=== PATIENT | male | born 1960 | race Caucasian/White ===

== ENCOUNTER 2021-04-15 07:55 | Day surgery (SDC) | payer BC, SELFPAY ==
--- NOTE | 2021-04-14 11:54 | P.CONAN_ITS ---
Documented by User: Janette Tucker 04/14/21 11:56 HPI - Anesthesia Eval Consult details Narrative: 61yo M for Upper Endoscopy [facility] Past Medical History Medical History GERD (gastroesophageal reflux disease) Surgical History Surgical History (Updated 04/15/21 @ 09:17 by Gayle Hunter) H/O colonoscopy (~2019) History of esophagogastroduodenoscopy (EGD) S/P left knee arthroscopy S/P right knee arthroscopy Social History Social History Smoking Status: Never smoker Second Hand Smoke Exposure: No Use of substances other than those prescribed or required for medical reasons: No Are you DNR?: No Advance Directives: No Advance Directives Information Provided: Yes Recently lost weight without trying: No Nutrition Risks: No Nutritional Risk Poor oral hygiene: No Meds Allergies Allergy/AdvReac Type Severity Reaction Status Date / Time No Known Allergies Allergy Verified 04/15/21 08:08 Home Medications Medication Instructions Recorded Confirmed Last Taken Type omeprazole 1 cap PO DAILY 04/14/21 04/14/21 Unknown History Exam Exam Date and Time: April 14, 2021 1154 Assessment and Plan Assessment Anesthesia Assessment: Chart Reviewed Documented by User: Gayle Hunter 04/15/21 09:18 [facility] Past Medical History Medical History GERD (gastroesophageal reflux disease) Family History Family history of problems with anesthesia: No Surgical History Surgical History (Updated 04/15/21 @ 09:17 by Gayle Hunter) H/O colonoscopy (~2019) History of esophagogastroduodenoscopy (EGD) S/P left knee arthroscopy S/P right knee arthroscopy History of Problems with Anesthesia: No Social History Social History Smoking Status: Never smoker Second Hand Smoke Exposure: No Use of substances other than those prescribed or required for medical reasons: No Are you DNR?: No Advance Directives: No Advance Directives Information Provided: Yes Recently lost weight without trying: No Nutrition Risks: No Nutritional Risk Poor oral hygiene: No Meds Allergies Allergy/AdvReac Type Severity Reaction Status Date / Time No Known Allergies Allergy Verified 04/15/21 08:08 Home Medications Medication Instructions Recorded Confirmed Last Taken Type omeprazole 1 cap PO DAILY 04/14/21 04/14/21 Unknown History Exam Height,Weight and Vital Signs: Vital Signs Temp Pulse Resp BP Pulse Ox 04/15/21 08:01 97.0 F 55 16 134/67 97 Airway Mallampati Class: II TM Dist: >3cm Neck ROM: Full Heart: RRR Lungs: CTAB Assessment and Plan Assessment Anesthesia Assessment: Anesthesia Plan Discussed and Chart Reviewed Final Anesthetic Review NPO: Yes ASA Class: II Final Preanesthetic Review: No Changes in Pt Med Stat, Meds/Allgs Chart Reviewed, Consent Obtained/Reviewed and Anes Risks/Benef Reviewed Patient Risk: Low Procedure Risk: Low Assessment/Block/Sedation in SS: Assess/Block/Sedation-SS Anesthetic Plan Anesthetic Plan: MAC: Disposition: Standard PACU
[2021-04-15 08:01] VITALS: BP 134/67; PULSE 55; RESP 16; TEMP 36.1; O2SAT 97; BMI 33.7
[2021-04-15] MEDS: Lactated Ringers 1,000 ML 100 ML IVCONT (08:20)
[2021-04-15 09:50] VITALS: BP 115/65; PULSE 60; RESP 12; TEMP 36.2; O2SAT 96
--- NOTE | 2021-04-15 09:55 | P.BOP_ITS ---
Brief Operative Note Date of Service: 04/15/21 Pre-op diagnosis: GERD Post-op diagnosis: other (Hiatal hernia, GERD) Procedure: EGD with biopsies Surgeon: Chin Panda Anesthesia: MAC Was an Experimental Electronics Developer used for this Procedure?: No Estimated blood loss (mL): 3.0 Pathology: other (A. EG Junction at 36cm) Condition: stable Disposition: PACU
[2021-04-15 10:05] VITALS: BP 115/70; PULSE 55; RESP 16; TEMP 36.2; O2SAT 98
--- NOTE | 2021-04-15 10:28 | OP_ITS ---
SURGEON: Chin Panda MD INDICATIONS: The patient presents for evaluation of gastroesophageal reflux and abdominal discomfort. Full consent has been obtained from him for this, including risks of bleeding and perforation. PREOPERATIVE DIAGNOSIS: POSTOPERATIVE DIAGNOSIS: PROCEDURE PERFORMED: Esophagogastroduodenoscopy with biopsies. ESTIMATED BLOOD LOSS: COMPLICATIONS: ANESTHESIA: Monitored anesthesia care. ASSISTANTS: SPECIMENS: PREOPERATIVE DIAGNOSES: Abdominal discomfort and gastroesophageal reflux. POSTOPERATIVE DIAGNOSES: Abdominal discomfort and gastroesophageal reflux, hiatal hernia. DESCRIPTION OF PROCEDURE: The patient was placed in the left lateral decubitus position. The Olympus video gastroscope was passed in the posterior oropharynx and upper esophagus under direct vision. The scope was passed slowly into the distal esophagus. The gastroesophageal junction appeared at 36 cm. There was some very slight irregularity consistent with reflux, but no evidence of esophagitis nor any definitive evidence of Villela's mucosa. The scope entered into the stomach. There was a small to moderate-sized hiatal hernia. The scope was advanced to pylorus and duodenum was cannulated to the descending portion. The duodenum including the bulb appeared normal without mass or ulceration. The scope was withdrawn back in the stomach. The gastric antrum and body appeared normal with good peristalsis. The scope was retroflexed visualizing the proximal stomach carefully, which appeared normal, without any sign of mass or ulceration. The scope was straightened out and withdrawn back into the esophagus. Biopsies were obtained at the EG junction at 36 cm. Proximal to this, the esophageal mucosa appeared normal. The scope was withdrawn from the patient. He tolerated the procedure well and was returned to the recovery area in stable condition. IMPRESSION: Hiatal hernia, gastroesophageal reflux. PLAN: The results of the biopsies will be checked. He has been improved since we increased the omeprazole from 20 to 40 mg daily. I did advise him to continue the 40 mg dose. He has also had some improvement in his irregular bowel movements on the Metamucil and he will continue that as well. He will be scheduled for an abdominal ultrasound for further evaluation of the abdominal discomfort as well. MD FRANDY Su/CHANG / [id number]
== END 2021-04-15 10:49 | disposition home or self-care (01) ==
PROVIDERS: PCP Internal Medicine; Visit Provider Internal Medicine
PROC: 0DJ08ZZ Inspection of Upper Intestinal Tract, Via Natural or Artificial Opening Endoscopic (ICD-10-PCS; CPT 43235; principal; 2021-04-15 09:10)
DX: K21.9 Gastro-esophageal reflux disease without esophagitis (principal); K44.9 Diaphragmatic hernia without obstruction or gangrene; R10.13 Epigastric pain; Z79.899 Other long term (current) drug therapy
CPT/HCPCS: 43239; 88305

== ENCOUNTER 2021-05-06 07:39 | Outpatient (REF) | payer BC, SELFPAY | END 2021-05-06 07:40 | disposition home or self-care (01) | LOC: HO.US 07:39 | PROVIDERS: Visit Provider Internal Medicine | DX: Z13.89 Encounter for screening for other disorder (principal) ==

== ENCOUNTER 2021-05-08 08:29 | Outpatient (REF) | payer BC, SELFPAY ==
--- NOTE | ~2021-05-08 | US_ITS ---
EXAMINATION: US ABDOMEN COMPLETE CLINICAL INFORMATION: Epigastric pain. COMPARISON: None TECHNIQUE: Real-time imaging of the abdominal viscera. FINDINGS: PANCREAS: Obscured by bowel gas and could not be evaluated. ABDOMINAL AORTA: The proximal, mid, and distal segments are normal in caliber. INFERIOR VENA CAVA: Visualized portions are normal. LIVER: The liver is normal in size. The liver contour is normal. There is diffuse increased liver parenchymal echogenicity, consistent with hepatic steatosis. In the right lobe of the liver, there is a focal mass seen measuring 1.4 x 1.8 x 1.4 cm. This is not a simple cyst and is indeterminate. There is no intrahepatic biliary duct dilatation seen. GALLBLADDER: Normal. The gallbladder is physiologically distended without evidence of stones, sludge, polyps, wall thickening or pericholecystic fluid. COMMON BILE DUCT: Normal in caliber measuring 0.4 cm in diameter. RIGHT KIDNEY: Normal. No hydronephrosis. No renal calculi or focal parenchymal lesions. The kidney measures 10.7 cm in maximum dimension. LEFT KIDNEY: Normal. No hydronephrosis. No renal calculi or focal parenchymal lesions. The kidney measures 11.0 cm in maximum dimension. SPLEEN: Normal. The spleen measures 10.5 cm in maximum dimension. FREE FLUID: None. US/US abdomen complete IMPRESSION: 1. Nonvisualization of pancreas. 2. Solid 1.8 cm liver mass. Dynamic liver MRI is recommended for further evaluation. 3. Hepatic steatosis.
== END 2021-05-08 08:30 | disposition home or self-care (01) ==
LOC: HO.HMGCX 08:29
PROVIDERS: Visit Provider Internal Medicine
DX: R10.13 Epigastric pain (principal)
CPT/HCPCS: 76700

== ENCOUNTER 2021-05-26 17:46 | Outpatient (REF) | payer BC, SELFPAY ==
[2021-05-26 18:33] LABS: Alanine Aminotransferase 23 U/L (0-40); Albumin Level 4.4 g/dL (3.5-5.0); Alkaline Phosphatase 85 U/L (39-117); Aspartate Amino Transferase 28 U/L (5-37); Bilirubin Direct 0.3 mg/dL (0.0-0.5); Bilirubin Total 0.5 mg/dL (0.0-1.0); Blood Urea Nitrogen 18 mg/dL (9-16); Estimated Glomerular Filt Rate > 60; Total Protein 7.2 g/dL (6.5-8.0)
[2021-05-28 12:01] LABS: Alpha Fetoprotein 3.5 ng/mL (<6.1)
== END 2021-05-26 17:47 | disposition home or self-care (01) ==
LOC: HO.MRI 17:46
PROVIDERS: PCP Internal Medicine; Visit Provider Internal Medicine
DX: R93.2 Abnormal findings on diagnostic imaging of liver and biliary tract (principal); R16.0 Hepatomegaly, not elsewhere classified
CPT/HCPCS: 36415; 80076; 82105; 82378; 82565; 84520

== ENCOUNTER 2023-07-21 05:19 | Outpatient (REF) | payer MEDICARE, SELFPAY ==
--- NOTE | ~2023-07-21 | XR_ITS ---
EXAMINATION: XR HIP, RIGHT CLINICAL INFORMATION: Pain. COMPARISON: Radiographs dated 04/01/2015. TECHNIQUE: AP and frog-leg lateral views of the right hip are submitted. FINDINGS: There is bony demineralization. There is an intact right hip arthroplasty, without hardware failure or loosening noted. No periprosthetic fracture. There is moderate narrowing of the left acetabular joint space medially. There is subchondral sclerosis and peripheral osteophyte formation of the left acetabular roof. The left femoral head appears smooth. The sacroiliac joints are symmetric and well-maintained. The pubic symphysis is intact. There are vasectomy clips noted. XR/XR hip RT min 2V IMPRESSION: 1. There is an intact right hip total arthroplasty, without hardware failure or loosening seen. 2. There is moderate osteoarthritic change of the left hip.
== END 2023-07-21 05:20 | disposition home or self-care (01) ==
LOC: HO.HOSX 05:19
PROVIDERS: Visit Provider Orthopaedic Surgery
DX: M25.551 Pain in right hip (principal)
CPT/HCPCS: 73502

== ENCOUNTER 2023-07-21 10:55 | Outpatient (AMB) | payer MEDICARE, SELFPAY ==
--- NOTE | 2023-07-21 11:05 | MHC.OFFVIS ---
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 Franklin for an evaluation of right hip s/p RYAN on 03/03/23. The patient reports intermittent discomfort along the lateral aspect of his right hip. He states that on certain days he will take 1 Aleve in the morning which gives him good relief. He continues to walk for exercise. He denies any fevers or chills. He does have chronic low back pain. He has had injections given into his low back in the past which gave him temporary relief. He has not been seen by a back specialist recently. Allergies No Known Allergies Allergy (Verified 07/21/23 11:07) Medication List - Last Reconciled 07/21/23 by Jefferson Franklin MD omeprazole 1 cap PO DAILY PFSH Medical History (Updated 07/15/23 @ 15:51 by Jefferson Franklin MD) GERD (gastroesophageal reflux disease) Surgical History (Updated 07/21/23 @ 11:15 by DARCI Morin) H/O colonoscopy (~2019) History of esophagogastroduodenoscopy (EGD) History of right hip replacement S/P left knee arthroscopy S/P right knee arthroscopy Social History (Updated 07/21/23 @ 11:09 by DARCI Morin) Patient Tobacco Use Status: Never used Tobacco Second Hand Smoke Exposure: No Current occupational status: employed 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 Physical Exam Vital Signs: BMI result Body Mass Index 33.7 Const Other: Well-nourished well-developed very friendly male awake alert and oriented x3 in no acute distress Extrem Other: Bilateral lower extremity examination shows good capillary refill, no skin lesions noted, normal sensation light touch Right hip examination shows that the surgical incision is well healed, no erythema, minimal discomfort with range of motion, mild tenderness to palpation over his greater trochanteric bursa Results Reviewed Results Reviewed: X-rays of the patient's right hip show a total hip arthroplasty in good position with no signs of loosening, no acute bony abnormalities Assessment & Plan Assessment & Plan (1) Right hip pain: Code(s): M25.551 - Pain in right hip Plan Mr. Sands continues to do well after undergoing right total hip replacement surgery on 03/03/2023. He does have intermittent discomfort along the lateral aspect of his hip most likely due to greater trochanteric bursitis. At this point the patient's symptoms are tolerable to him. We will hold off on a cortisone injection. He will continue with his home exercise program. He does notice take antibiotics before any dental work. He does have chronic low back pain. We will hold off on getting an MRI at this time. He will contact me prior to his follow-up appointment in 3 months for should his symptoms worsen in any way. Feel free to call me at any time should questions regarding his orthopedic management arise. I spent 22 minutes in reviewing the patient's records and imaging studies, seeing the patient and documenting in the medical record. Orders: Orders XR hip RT min 2V Today M25.551 - Pain in right hip Coding Level of Care Code Est Pt Level 2 (56894) Diagnoses Right hip pain M25.551
[2023-07-21 11:09] VITALS: BMI 33.7
== END 2023-07-21 11:32 | disposition home or self-care (01) ==
PROVIDERS: PCP Internal Medicine; Visit Provider Orthopaedic Surgery
DX: M25.551 Pain in right hip (principal)
CPT/HCPCS: 99212

== ENCOUNTER 2023-10-26 07:42 | Outpatient (REF) | payer MEDICARE, SELFPAY | END 2023-10-26 07:43 | disposition home or self-care (01) | LOC: HO.HOSX 07:42 | PROVIDERS: Visit Provider Orthopaedic Surgery | DX: M25.551 Pain in right hip (principal) | CPT/HCPCS: 99212 ==

== ENCOUNTER 2023-10-26 09:26 | Outpatient (AMB) | payer MEDICARE, SELFPAY ==
[2023-10-26 09:35] VITALS: BMI 33.7
--- NOTE | 2023-10-26 09:35 | MHC.OFFVIS ---
Intake Vital Signs 10/26/23 09:35 Height 5 ft 10 in Weight 235 lb BMI 33.7 Intake Visit Reasons: OV - Right RYAN 03/03/2023 Intake Note: Jamal 63 year old male who presents today for a follow up s/p right RYAN 03/03/23. He reports mild intermittent discomfort along the lateral aspect of his right hip. He denies any fevers or chills. He also has intermittent low back pain. He has had injections given into his low back in the past which gave him mild relief. He reports intermittent weakness in his right leg. He takes Aleve which gives him fairly good relief of his discomfort. Allergies No Known Allergies Allergy (Verified 10/26/23 09:37) Medication List - Last Reconciled 10/26/23 by Jefferson Franklin MD omeprazole 1 cap PO DAILY PFSH Medical History (Updated 10/26/23 @ 09:57 by Jefferson Franklin MD) GERD (gastroesophageal reflux disease) Surgical History (Updated 07/21/23 @ 11:15 by DARCI Morin) History of right hip replacement History of esophagogastroduodenoscopy (EGD) H/O colonoscopy (~2019) S/P right knee arthroscopy S/P left knee arthroscopy Social History (Updated 07/21/23 @ 11:09 by DARCI Morin) Patient Tobacco Use Status: Never used Tobacco Second Hand Smoke Exposure: No Current occupational status: employed 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 Sands continues to do well after undergoing right total hip replacement surgery in February. Did give him a prescription to go back to formal physical therapy for evaluation of his chronic low back pain as well as intermittent right leg weakness. The do's and don'ts of lifting were discussed at length with the patient. He does know to take antibiotics before any dental work. He will contact me prior to his annual follow-up appointment should any questions or concerns arise. Feel free to call me at any time should questions regarding his orthopedic management arise. I spent 22 minutes in reviewing the patient's records and imaging studies, seeing the patient and documenting in the medical record. Orders: Orders PT Evaluation and Treatment Today M25.551 - Pain in right hip, M54.50 - Low back pain, unspecified Coding Level of Care Code Est Pt Level 2 (18119) Diagnoses Right hip pain M25.551
== END 2023-10-26 09:59 | disposition home or self-care (01) ==
PROVIDERS: PCP Internal Medicine; Visit Provider Orthopaedic Surgery
DX: M25.551 Pain in right hip (principal)
CPT/HCPCS: 99212

== ENCOUNTER 2024-01-17 06:46 | Outpatient (REF) | payer MEDICARE, SELFPAY ==
--- NOTE | ~2024-01-17 | XR_ITS ---
EXAMINATION: XR chest 2V CLINICAL INFORMATION: Reason for Exam DYSPNEA,EXPOSURE COMPARISON: No prior chest x-ray available in our system for comparison at the time of this dictation. TECHNIQUE: XR chest 2V, 2 Views Lungs and Hollie: Both lungs are clear. Pleura: Normal. Costophrenic angles are sharp. No pneumothorax. Heart: The heart is normal in size. Mediastinum: The mediastinum is within normal limits.. Bones: Skeletal structures included are normal for patient's age. XR/XR chest 2V IMPRESSION: No radiographic evidence of acute cardiopulmonary disease.
[2024-01-17 07:37] LABS: MANUAL DIFF FLAG NO
[2024-01-17 07:47] LABS: Basophils Absolute Auto 0.1 X10*3/uL (0.0-0.2); Basophils Percent Auto 0.8 % (0-2); Eosinophils Absolute Auto 0.3 X10*3/uL (0.0-0.4); Eosinophils Percent Auto 4.1 % (0-4); Hematocrit 45.5 % (42.0-52.0); Hemoglobin 15.1 g/dl (14.0-18.0); Imm Gran Abs Auto 0.02 X10*3/uL (0.00-0.03); Imm Gran Pct Auto 0.3 % (0.0-0.4); Lymphocytes Absolute Auto 1.6 X10*3/uL (1.2-4.9); Lymphocytes Percent Auto 26.7 % (20-40); Mean Corpuscular HGB Conc 33.2 g/dl (31.0-36.0); Mean Corpuscular Hemoglobin 30.4 pg (27.0-33.0); Mean Corpuscular Volume 91.7 fL (80.0-98.0); Mean Platelet Volume 9.1 fL (9.4-12.4); Monocytes Absolute Auto 0.6 X10*3/uL (0.1-1.2); Monocytes Percent Auto 10.5 % (2-11); Neutrophils Absolute Auto 3.5 x10*3/uL (2.0-8.3); Neutrophils Percent Auto 57.6 % (45-73); Platelet Count 226 X10*3/uL (160-400); Red Blood Count 4.96 X10*6/uL (4.60-5.80); Red Cell Distribution Width 13.8 % (11.0-16.0); White Blood Count 6.1 X10*3/uL (4.8-10.8)
[2024-01-17 08:11] LABS: Alanine Aminotransferase 30 U/L (0-40); Alkaline Phosphatase 79 U/L (39-117); Anion Gap 13 (12-20); Aspartate Amino Transferase 26 U/L (5-37); Bilirubin Total 0.6 mg/dL (0.0-1.0); Blood Urea Nitrogen 17 mg/dL (9-16); Calcium 9.4 mg/dL (8.4-10.2); Carbon Dioxide 30 mmol/L (22-29); Chloride 107 mmol/L (96-108); Cholesterol 204 mg/dL (<200); Estimated Glomerular Filt Rate > 60; Glucose Fasting 93 mg/dL (60-99); HDL Cholesterol 48 mg/dL (>40); LDL Cholesterol Calculated 139 mg/dL (<100); Potassium 4.7 mmol/L (3.3-5.1); Sodium 145 mmol/L (135-145); Total Protein 7.2 g/dL (6.5-8.0); Triglycerides 86 mg/dL (<150)
[2024-01-17 08:32] LABS: Prostate Specific Antigen 0.37 ng/mL (<0.05-4.0)
== END 2024-01-17 06:47 | disposition home or self-care (01) ==
LOC: HO.XRAY 06:46
PROVIDERS: PCP Internal Medicine Medical Oncology; Visit Provider Internal Medicine Medical Oncology
DX: E66.9 Obesity, unspecified (principal); N40.0 Benign prostatic hyperplasia without lower urinary tract symptoms; M19.90 Unspecified osteoarthritis, unspecified site; R06.00 Dyspnea, unspecified; T75.89XA Other specified effects of external causes, initial encounter; Z12.5 Encounter for screening for malignant neoplasm of prostate
CPT/HCPCS: 36415; 71046; 80053; 80061; 84153; 85025

== ENCOUNTER 2024-03-14 09:23 | Outpatient (AMB) | payer MEDICARE, SELFPAY ==
[2024-03-14 09:25] VITALS: BMI 33.7
--- NOTE | 2024-03-14 09:25 | MHC.OFFVIS ---
Intake Vital Signs 03/14/24 09:25 Height 5 ft 10 in Weight 235 lb BMI 33.7 Intake Visit Reasons: OV - Right RYAN 03/03/2023 Intake Note: Ralf is a 64 year old male who presents for his bilateral knee pain. Patient reports his pain has been going on for about 10 years and is a 4 on the 1-10 pain scale. Patient states his Right is worse and is using voltaren gel, ibuprofen, and a knee brace for pain with little relief. He has had cortisone injections which gave him no relief. He wishes to hold off on total knee replacement surgery for as long as possible. He has done physical therapy exercises which aggravated his pain. Allergies No Known Allergies Allergy (Verified 03/14/24 09:48) Medication List - Last Reconciled 03/15/24 by Jefferson Franklin MD omeprazole 40 mg PO DAILY PFSH Medical History (Updated 03/14/24 @ 10:10 by Jefferson Franklin MD) GERD (gastroesophageal reflux disease) Surgical History (Updated 07/21/23 @ 11:15 by DARCI Morin) History of right hip replacement History of esophagogastroduodenoscopy (EGD) H/O colonoscopy (~2019) S/P right knee arthroscopy S/P left knee arthroscopy Social History (Updated 07/21/23 @ 11:09 by DARCI Morin) Patient Tobacco Use Status: Never used Tobacco Second Hand Smoke Exposure: No Current occupational status: employed 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 Physical Exam Vital Signs: BMI result Body Mass Index 33.7 Const Other: Well-nourished well-developed very friendly male awake alert and oriented x3 in no acute distress Extrem Other: Bilateral lower extremity examination shows good capillary refill, no skin lesions noted, normal sensation light touch Bilateral knee examination shows minimal effusions, palpable crepitus with range of motion, pain with range of motion, no instability Results Reviewed Results Reviewed: X-rays of the patient's bilateral knee show joint space narrowing, subchondral sclerosis, osteophyte formation, no acute bony abnormalities Assessment & Plan Assessment & Plan (1) Arthritis of both knees: Code(s): M17.0 - Bilateral primary osteoarthritis of knee Plan Mr. Sands presents with bilateral knee pains due to degenerative joint disease. I had a lengthy discussion with the patient regarding the treatment options. He wishes to hold off on total knee replacement surgery for as long as possible. I agree with this plan. He has not gotten good relief from cortisone injections in the past. Thus, I will see whether or not his insurance company will cover a viscosupplementation injection for both of his knees. I will see him back once the injections are available. Feel free to call me at any time should questions regarding his orthopedic management arise. I spent 22 minutes in reviewing the patient's records and imaging studies, seeing the patient and documenting in the medical record. Orders: Orders XR hip RT min 2V 03/14/24 M25.551 - Pain in right hip PT Evaluation and Treatment 03/14/24 M17.0 - Bilateral primary osteoarthritis of knee, M25.551 - Pain in right hip, M54.50 - Low back pain, unspecified XR knee LT 3V 03/14/24 M25.562 - Pain in left knee XR knee RT 3V 03/14/24 M25.562 - Pain in left knee Coding Level of Care Code Est Pt Level 2 (26011) Diagnoses Arthritis of both knees M17.0
== END 2024-03-14 10:12 | disposition home or self-care (01) ==
PROVIDERS: PCP Internal Medicine; Visit Provider Orthopaedic Surgery
DX: M17.0 Bilateral primary osteoarthritis of knee (principal)
CPT/HCPCS: 99214

== ENCOUNTER 2024-03-14 09:32 | Outpatient (REF) | payer MEDICARE, SELFPAY ==
--- NOTE | ~2024-03-14 | XR_ITS ---
EXAMINATION: XR BILATERAL KNEES CLINICAL INFORMATION: Pain in left knee. COMPARISON: Bilateral knee radiographs 09/05/2018. TECHNIQUE: 3 views of each knee. FINDINGS: RIGHT KNEE: Moderate joint effusion. Iqvu-[id number] narrowing of lateral compartment. Mild narrowing of the medial compartment. Small tricompartmental osteophytes. Redemonstration of dense calcifications anterior to the tibia. LEFT KNEE: Small joint effusion. Marked narrowing of the medial compartment with medial marginal osteophytes. Mild narrowing of the lateral compartment. XR/XR knee RT 3V IMPRESSION: 1. Progression of advanced degenerative changes in the right knee. 2. Progression of advanced degenerative changes in the left knee.
--- NOTE | ~2024-03-14 | XR_ITS ---
EXAMINATION: XR BILATERAL KNEES CLINICAL INFORMATION: Pain in left knee. COMPARISON: Bilateral knee radiographs 09/05/2018. TECHNIQUE: 3 views of each knee. FINDINGS: RIGHT KNEE: Moderate joint effusion. [id number] narrowing of lateral compartment. Mild narrowing of the medial compartment. Small tricompartmental osteophytes. Redemonstration of dense calcifications anterior to the tibia. LEFT KNEE: Small joint effusion. Marked narrowing of the medial compartment with medial marginal osteophytes. Mild narrowing of the lateral compartment. XR/XR knee LT 3V IMPRESSION: 1. Progression of advanced degenerative changes in the right knee. 2. Progression of advanced degenerative changes in the left knee.
== END 2024-03-14 09:33 | disposition home or self-care (01) ==
LOC: HO.HOSX 09:32
PROVIDERS: Visit Provider Orthopaedic Surgery
DX: M17.0 Bilateral primary osteoarthritis of knee (principal)
CPT/HCPCS: 73562; 99212

== ENCOUNTER 2024-03-21 09:07 | Outpatient (AMB) | payer MEDICARE, SELFPAY ==
--- NOTE | 2024-03-21 09:10 | MHC.OFFVIS ---
Vital Signs 03/21/24 09:11 Height 5 ft 10 in Weight 235 lb BMI 33.7 Intake Visit Reasons: Bilateral knee pain Intake Note: Ralf is a 64 year old male who presents with complaints of progressively worsening bilateral knee pains. Patient describes his pains as sharp and severe in nature. He has had cortisone injections in the past which gave him minimal relief. Has also done physical therapy which aggravated his pain. Denies any locking or giving way. He has tried Tylenol and anti-inflammatory medicines which gave him minimal relief. He would like to hold off on total knee replacement surgery for as long as possible. 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 Physical Exam Vital Signs: BMI result Body Mass Index 33.7 Const Other: Well-nourished well-developed very friendly male awake alert and oriented x3 in no acute distress Extrem Other: Bilateral lower extremity examination shows good capillary refill, no skin lesions noted, normal sensation light touch Bilateral knee examination shows minimal effusions, palpable crepitus with range of motion, pain with range of motion, no instability Office Procedures Joint Injection/Drain Joint Injection/Drain Primary Site: right knee Prep: site was prepped using aseptic technique Injected: 60 mg of (Durolane viscosupplementation) and 1% plain lidocaine Procedure: The patient tolerated the procedure well Coding 11260 - Large joint Procedure code (CPT) selection complete Joint Injection/Drain Joint Injection/Drain Primary Site: left knee Prep: site was prepped using aseptic technique Injected: 60 mg of (Durolane viscosupplementation) and 1% plain lidocaine Procedure: The patient tolerated the procedure well Coding - Large joint Procedure code (CPT) selection complete Results Reviewed Results Reviewed: X-rays of the patient's bilateral knee show joint space narrowing, subchondral sclerosis, no acute bony abnormalities Assessment & Plan Assessment & Plan (1) Arthritis of left knee: Code(s): M17.12 - Unilateral primary osteoarthritis, left knee Category: Medical (2) Arthritis of right knee: Code(s): M17.11 - Unilateral primary osteoarthritis, right knee Category: Medical (3) Pain in both knees: Code(s): M25.561 - Pain in right knee; M25.562 - Pain in left knee Plan Mr. Ibrahim presents with bilateral knee pains due to degenerative joint disease. I had a lengthy discussion with the patient regarding the treatment options. He wishes to hold off on total knee replacement surgery for as long as possible. I agree with this plan. Has not gotten good relief from cortisone injections in the past. Thus, the risks and benefits of bilateral knee Durolane viscosupplementation injections were discussed at length with the patient. The patient wished to proceed. Tolerated the injections well. He will continue with his home exercise program. He will follow up with me on an as-needed basis should his symptoms not plateau at an unacceptable level over the next few months. Feel free to call me at any time should questions regarding his orthopedic management arise. I spent 22 minutes in reviewing the patient's records and imaging studies, seeing the patient and documenting in the medical record. Orders: Orders AMB Joint Injection/Aspiration Today M17.12 - Unilateral primary osteoarthritis, left knee AMB Joint Injection/Aspiration Today M17.11 - Unilateral primary osteoarthritis, right knee Coding Level of Care Code Est Pt Level 2 (83344) Diagnoses Arthritis of left knee M17.12 Arthritis of right knee M17.11 Pain in both knees M25.561; M25.562 CPT Codes Coding - Large joint: 92432 - Large joint ([id number]) Coding - Large joint: 12281 - Large joint ([id number])
[2024-03-21 09:11] VITALS: BMI 33.7
== END 2024-03-21 09:37 | disposition home or self-care (01) ==
PROVIDERS: PCP Internal Medicine Medical Oncology; Visit Provider Orthopaedic Surgery
DX: M17.0 Bilateral primary osteoarthritis of knee (principal); M25.561 Pain in right knee; M25.562 Pain in left knee
CPT/HCPCS: 20610; 99214

== ENCOUNTER → 2024-03-21 09:07 | Outpatient (BNVA) | payer MEDICARE, SELFPAY | PROVIDERS: PCP Internal Medicine Medical Oncology; Visit Provider Orthopaedic Surgery | DX: M17.12 Unilateral primary osteoarthritis, left knee (principal); M17.11 Unilateral primary osteoarthritis, right knee; M25.561 Pain in right knee; M25.562 Pain in left knee | CPT/HCPCS: 20610; 99212; J7318 ==

== ENCOUNTER 2025-03-27 06:14 | Outpatient (REF) | payer MEDICARE, SELFPAY ==
--- OUTSIDE RECORDS SUMMARY | 2025-03-27 06:17 | XMS_ITS | Clinical Summary ---
Author Organization [facility] Address [address] [place] [address] Care Team Providers Care Signal Fitter Name Role Phone Elpidio He MD Primary Care Provider [phone] Allergies No known active allergies Medications Medication Sig Dispensed Refills Start Date End Date Status omeprazole (PriLOSEC) 40 MG capsule 1 capsule (40 mg total) daily. 0 12/01/2021 Active gabapentin (Neurontin) 300 MG capsule Take 1 capsule (300 mg total) by mouth daily. Start first dose the evening prior to surgery 3 capsule 0 02/02/2022 Active methocarbamol (ROBAXIN) 750 MG tablet Take 1 tablet (750 mg total) by mouth 4 (four) times a day as needed (for muscle spasm.). 40 tablet 0 03/04/2023 Active oxyCODONE (ROXICODONE) 5 MG immediate release tablet Take 1 tablet (5 mg total) by mouth every 4 (four) hours as needed for pain. 40 tablet 0 03/04/2023 Active Social History Tobacco Use Types Packs/Day Years Used Date Smoking Tobacco: Never Smokeless Tobacco: Never Alcohol Use Standard Drinks/Week Comments Not Currently 0 (1 standard drink = 0.6 oz pur e alcohol) Sex and Gender Information Value Date Recorded Sex Assigned at Male 02/03/2023 11:16 AM EST Gender Identity Male 02/03/2023 11:16 AM EST Sexual Orientation Straight 03/03/2023 7: 38 AM EDT Job Start Date Occupation Industry Not on file Not on file Not on file Last Filed Vital Signs Vital Sign Reading Time Taken Comments Blood Pressure 114/68 03/04/2023 8:17 AM EDT Pulse 65 03/04/2023 8:17 AM EDT Temperature 36.6 ??C (97.8 ??F) 03/04/2023 8:17 AM ED T Respiratory Rate 16 03/04/2023 8:17 AM EDT Oxygen Saturation 97% 03/04/2023 8:17 AM EDT Inhaled Oxygen Concentration - - Weight 106.6 kg (235 lb) 03/03/2023 7:59 AM EDT Height 180.3 cm (5' 11 ) 03/03/2023 7:59 AM EDT Body Mass Index 32.78 03/03/2023 7:59 AM EDT Plan of Treatment Health Maintenance Due Date Last Done Comments Hepatitis C Screening 1958 COVID-19 Vaccine (#1) 1958 Depression Screening 1970 BMI Counseling 1976 Preventative Health Evaluation 1976 DTap / Tdap / Td (1 - Tdap) 1977 Colon Cancer Screening (Colonoscopy) 2003 Shingrix-Zoster Vaccine (1 o f 2) 2008 Fall Risk Assessment 2023 Pneumococcal Vaccine (1 of 1 - PCV) 2023 Influenza Vaccine (#1) 2024 0, 12/28/2019, 08/28/2019 RSV Adult > 60+ Yrs or (1 - 1-dose 75+ series) 2033 Hepatitis B Vaccines Aged Out No long er eligible based on patient's age to complete this topic RSV Ped < 20 months Aged Out No longe r eligible based on patient's age to complete this topic Medical Devices Implanted Type Area Softball Player Device Identifier Shelf Expiration Date Model / Serial / Lot Lp Hex Screw 6.5x30mm Stry-Howm [id number] - [id number] Implanted:Qty: 1 on 03/03[place] [facility] [place] [employer] [id number] 02/01/2028 0039-1605 / / [id number] Impl Set Bead 2.0mm Vit Dall Gerson Stry-How [id number] 128 - [id number] Implanted:Qty: 1 on 03/03/2023 by Jefferson Franklin MD at [facility] [place] [facility] Right: Hip [facility] [id number] 12/30/2027 6704-0-520 / / [id number] Tritanium Cluster Hole Shell 58mm Stry-Howm [id number] 475 - [id number] Implanted:Qty: 1 on 03/03/2023 by Jefferson Franklin MD at [facility] [place] and [facility] Right: Hip [facility] [id number] 10/18/2027 702-04-58F / / [id number] Lp Hex Screw 6.5x25mm Stry-Howm [id number] 58 - [id number] Implanted:Qty: 1 on 03/03/2023 by Jefferson Franklin MD at [facility] [place] and [facility] Right: Hip [employer] [id number] 01/11/2028 7270-4012 / / [id number] Hip Insrt Poly X3 10deg 36mm Stry-Howm [id number] 348 - [id number] Implanted:Qty: 1 on 03/03/2023 by Jefferson Franklin MD at [facility] [place] and [facility] Right: Hip [facility] [id number] 06/03/2027 623-10-36F / / [id number] Hip Stem Accolade Ii Sz6 Stry-Howm [id number] 19 - [id number] Implanted:Qty: 1 on 03/03/2023 by Jefferson Franklin MD at [facility] [place] and [facility] Right: Hip [facility] [id number] 12/21/2027 6451-6786 / / [id number] Description:#6, V40, 127 deg ree Hip Head Delta Annie 36mm 0 Stry-Howm [id number] 812 - [id number] Implanted:Qty: 1 on 03/03/2023 by Jefferson Franklin MD at [facility] [place] and [facility] Right: Hip [facility] [id number] 01/05/2028 6570-0-136 / / [id number] Advance Directives For more information, please contact: [phone] Latest Code Status on File Code Status Date Activated Date Inactivated Comments Full Code 03/03/2023 11:58 AM 03/04/2023 7:26 PM This c ode status was ascertained in the following way: discussion with patient . Code Status History Code Status Date Activated Date Inactivated Comments Full Code 03/03/2023 7:40 AM 03/03/2023 11:58 AM This c ode status was ascertained in the following way: discussion with patient . Care Teams Signal Fitter Relationship Specialty Start Date End Date Elpidio He MD [address] [place] [address] PCP - General Supervisor Landscape 01/28/23
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
--- OUTSIDE RECORDS SUMMARY | 2025-03-27 06:17 | XMS_ITS ---
[facility] Name [facility] Organization Unknown Results Test Name/Text Value Interpretation Date Range Source eGFRcr SerPlBld CKD-EPI 2020 98mL/min/1.73 m2 Normal [id number] - [facility] Creat SerPl-mCnc 0.8mg/dL Normal [id number] 0.7 - 1.3 [facility] Calcium SerPl-mCnc 8.6mg/dL Normal [id number] 8.4 - 10 .2 [facility] BUN/Creat SerPl 22.5 Above high normal [id number] 12 - 20 [facility] CO2 SerPl-sCnc 27mmol/L Normal [id number] 24 - 32 [facility] Chloride SerPl-sCnc 103mmol/L Normal [id number] 98 - 107 [facility] Potassium SerPl-sCnc 4.3mmol/L Normal [id number] 3.5 - 5.1 [facility] Anion Gap SerPl-sCnc 6 Normal [id number] 5 - 14 [facility] BUN SerPl-mCnc 18mg/dL Normal [id number] 9 - 20 [facility] Glucose SerPl-mCnc 126mg/dL Normal [id number] 70 - 199 [facility] Sodium SerPl-sCnc 136mmol/L Normal [id number] 135 - 145 [facility] Hgb Bld-mCnc 12.8g/dL Below low normal [id number] 13.5 - 18 [facility] RDW RBC Auto-Rto 13.7% Normal [id number] 12.1 - 17. 7 [facility] Hct VFr Bld Auto 39% Below low normal [id number] 40 - 54 [facility] PMV Bld Auto 7FL Below low normal [id number] 7.4 - 1 1.4 [facility] MCHC RBC Auto-mCnc 33g/dL Normal [id number] 32 - 36 [facility] RBC # Bld Auto 4.23M/mcL Below low normal [id number] 4.7 - 6 [facility] MCV RBC Auto 92.1FL Normal [id number] 78 - 100 [facility] MCH RBC Qn Auto 30.3pcg Normal [id number] 25 - 33 [facility] WBC # Bld Auto 15.4K/mcL Above high normal [id number] 4 - 10.5 [facility] Platelet # Bld Auto 316K/mcL Normal [id number] 150 - 450 [facility] History of Medication Use Medication Directions Dispensed Refills Start Date End Date Stat aspirin 81 mg EC tablet Take 1 tablet (81 mg total) by mouth every 12 (twelve) hours for 28 days. 12/25/2024 active ondansetron ODT (ZOFRAN-ODT) 4 mg disintegrating tablet Dissolve 2 tablets (8 mg total) on top of the tongue every 8 (eight) hours if needed for vomiting or nausea for up to 10 days. 12/25/2024 active pantoprazole (PROTONIX) 40 mg EC tablet Take 1 tablet (40 mg total) by mouth 1 (one) time each day before breakfast. Do not crush, chew, or split. 12/25/2024 active senna (SENOKOT) 8.6 mg tablet Take 2 tablets (17.2 mg total) by mouth at bedtime. 12/25/2024 active senna (SENOKOT) tablet 17.2 mg 17.2 mg (2 tablet), oral, Nightly, First dose on Tue12/24/24 at 2100, Recovery & On Unit, Bowel Regimen - for prevention of constipation 12/25/2024 active tranexamic acid (LYSTEDA) 650 mg tablet tablet Take 3 tablets (1,950 mg total) by mouth 1 (one) time each day for 2 days. 12/25/2024 active ceFAZolin (ANCEF) 2 g in sterile water 20 mL IV syringe 2 g, intravenous, Administer over 3 Minutes, Every 8 hours, First dose on Tue12/24/24 at 1700, For 2 doses, Recovery & On Unit, Indication: Prophylaxis-Surgica l 12/24/2024 5 completed acetaminophen (TYLENOL) 500 mg tablet Take 2 tablets (1,000 mg total) by mouth every 8 (eight) hours for 28 days. 12/24/2024 5 active bupivacaine-EPINEPH rine (MARCAINE w/EPI) 0.25 %-1:200,000 60 mL in sodium chloride 0.9 % 75 mL syringe infiltration, Once, On Tue12/24/24 at 0715, For 1 dose, Preprocedure, For OR/procedural administration by ordering provider. 12/24/2024 5 completed fentaNYL (PF) (SUBLIMAZE) injection 100 mcg 100 mcg, intravenous, Once as needed, severe pain, Starting on Tue12/24/24 at 0659, For 1 dose, Preprocedure 12/24/2024 5 completed HYDROmorphone (DILAUDID) injection 0.5 mg 0.5 mg, intravenous, Every 4 hours PRN, severe pain, If patient fails with oral medication, Starting on Tue12/24/24 at 1404 12/24/2024 active midazolam (VERSED) injection 2 mg 2 mg, intravenous, Once, On Tue12/24/24 at 0715, For 1 dose, Preprocedure 12/24/2024 5 completed orphenadrine (NORFLEX) injection 30 mg 30 mg, intravenous, Once as needed, muscle spasms, Starting on Tue12/24/24 at 1054, For 1 dose, Recovery (only) 12/24/2024 5 completed tranexamic acid (CYKLOKAPRON) 1,000 mg in sodium chloride 0.9 % 100 mL IVPB - MBP 1,000 mg (1 g), intravenous, Once, On Tue12/24/24 at 1130, For 1 dose, Recovery & On Unit, Mini-Bag Plus bag. Do not exceed maximum rate of 100 mg per minute. 12/24/2024 5 completed methocarbamoL (ROBAXIN) 750 mg tablet Take 1 tablet (750 mg total) by mouth 4 (four) times a day if needed for muscle spasms for up to 14 days. 12/24/2024 active ondansetron ODT (ZOFRAN-ODT) disintegrating tablet 4 mg [Order 1 Start] Name: ondansetron ODT (ZOFRAN-ODT) disintegrating tablet 4 mg Signed Summary: 4 mg, oral, Every 8 hours PRN, vomiting, nausea, Starting on Tue12/24/24 at 1115, Recovery & On Unit, -Give IV if patient is unable to take orally. -If inadequate response within 30 minutes, proceed to next 12/24/2024 active oxyCODONE (ROXICODONE) 5 mg immediate release tablet Take 1 tablet (5 mg total) by mouth every 4 (four) hours if needed (Breakthrough pain). Max Daily Amount: 30 mg 12/24/2024 active oxyCODONE (ROXICODONE) immediate release tablet 10 mg 10 mg, oral, Every 4 hours PRN, severe pain, Starting on Tue12/24/24 at 1404 12/24/2024 active amoxicillin 500 mg tablet Take 4 tablets 1 hour prior to dental procedure 03/16/2023 active meloxicam (MOBIC) 15 mg tablet Take 1 tablet (15 mg total) by mouth 1 (one) time each day. 09/13/2022 5 active omeprazole (PriLOSEC) [address] capsule Take 1 capsule (40 mg total) by mouth 1 (one) time each day. 12/01/2021 suspended amoxicillin 875 mg tablet TAKE 1 TABLET BY MOUTH TWICE A DAY UNTIL FINISHED 4 completed Marcaine (PF) 0.5 % (5 mg/mL) injection solution active lidocaine (PF) 100 mg/5 mL (2 %) injection syringe active amoxicillin 500 mg capsule TAKE 4 CAPSULES 1 HOUR PRIOR TO DENTAL PROCEDURE active azithromycin 250 mg tablet active meloxicam 15 mg tablet active methocarbamol 750 mg tablet active metronidazole 500 mg tablet TAKE 1 TABLET BY MOUTH THREE TIMES A DAY FOR 7 DAYS active ondansetron 4 mg disintegrating tablet active pantoprazole 40 mg tablet,delayed release active Prescription - New activ e senna 8.6 mg tablet TAKE 2 TABLETS BY MOUTH EVERY DAY AT BEDTIME active tramadol 50 mg tablet TAKE 1 TABLET BY MOUTH EVERY 6 HOURS NEEDED active tranexamic acid 650 mg tablet active trazodone 100 mg tablet TAKE 1 TABLET BY MOUTH EVERY DAY AT BEDTIME FOR 14 DAYS active acetaminophen (TYLENOL) 500 mg tablet Take by mouth every 6 (six) hours if needed for mild pain. suspended Problems Problem Status Onset Date Problem Type Date of Resoluti on Source Postoperative pain active 2023-03-16 ProblemAct [facility] Osteoarthritis of right knee joint active 2023-06-16 ProblemAct [facility] Arthritis of knee active 2024-09-28 ProblemAct [facility] History of total knee arthroplasty active 2025-01-03 ProblemAct [facility] Osteoarthritis of left knee joint active 2023-06-16 ProblemAct [facility] Arthritis of right hip active 2023-02-16 ProblemAct [facility] Localized osteoarthritis of right knee active 2024-12-[address] Problem[address] [facility] Encounters Encounter Type Encounter Reason Primary Diagnosis Location Date Ambulatory [facility] 02/08/2025 Ambulatory [facility] 02/08/2025 Ambulatory [facility] 02/02/2025 Ambulatory [facility] 01/25/2025 Ambulatory [facility] 01/21/2025 Ambulatory [facility] 01/15/2025 Ambulatory [facility] 01/11/2025 Ambulatory Unilateral primary osteoarthritis, right knee Unilateral primary osteoarthritis, right knee [facility] 12/24/2024 Ambulatory [facility] 10/01/2024 Ambulatory [facility] 09/24/2024 Ambulatory [facility] 09/24/2024 Ambulatory [facility] 06/13/2023 Ambulatory [facility] 05/06/2023 Ambulatory [facility] 04/13/2023 Ambulatory [facility] 04/12/2023 Ambulatory [facility] 04/06/2023 Ambulatory [facility] 04/06/2023 Ambulatory [facility] 03/18/2023 Ambulatory [facility] 03/16/2023 Ambulatory [facility] 03/10/2023 Care Team Organization Name Specialty Phone Email Start Date End Da te [facility] Bob Levy Primary Care 02/06/2025 [facility] Primary Care 12/24/2024 [facility] KATELIN GONZALEZ Primary Care 10/28/202207/16
--- OUTSIDE RECORDS SUMMARY | 2025-03-27 06:18 | XMS_ITS | Data Portability ---
Author Organization [place] [facility] Mandeep Savage [place] Address [address] [place] [address] Care Team Providers Care Manager Of Software Development Name Role Phone IZABEL SANZ Primary Care Provider [phone] Assessment Encounter Date Assessment Date Assessment LastModified by Organization Details LastModified Time 09/28/2024 09/28/2024 HPI : ?Thank you for the pleasure of requesting a consultation on this patient. Patient comes in complaining of right knee pain. He has bilateral knee pain, but the right knee is much worse than the left. He has undergone treatments including cortisone injections and gel injections with continued pain. He has a history of a right total hip replacement by Dr. Nevarez. This patient is experiencing right knee pain for a period lasting greater than the last three months, which is severe (VAS score greater than or equal to 6 on a 0-10 scale) in intensity and the restriction of function (appropriate for a patient of this age) are intolerable. The pain substantially limits activities of daily living. In particular, walking tolerance and ability to stair climb is reduced. Conservative management such as non-steroidal anti-inflammatory medications available by prescription, physician directed therapy, ice and/or heat and activity modification have been minimally effective or deemed insufficient by the patient for a period lasting greater than 3-6 months in duration. Assistive devices and external support were not deemed by the patient to be helpful in improving their function. The patient is unable to tolerate further conservative measures, including physical therapy, due to the severity of arthritis and level of pain. Review of systems is negative for rapidly progressive neurological disorder, chest pain, shortness of breath, fevers, chills, or any signs of active or persistent local or systemic infection. Physical Exam : Patient is well nourished, well-developed, in no acute distress, with appropriate mood and affect. The patient is oriented to time, place, and person. Respirations are even and unlabored. Gait evaluation does reveal a limp. There is no inguinal adenopathy. Examination of the left knee has medial joint line tenderness range of motion 5 to 125 degrees. The affected limb is well-perfused, without skin lesions, shows a grossly normal motor and sensory examination. Right knee motion is significantly reduced and does cause significant pain. The knee moves from 5-120 degrees. The knee is stable within that fhvgx-jv-caswet to AP and ML stress. The alignment of the knee is valgus. Muscle strength is normal. Pedal pulses are palpable. Hip examination, including flexion and internal rotation, was negative in that groin pain was not produced. Assessment/Plan : The patient is an appropriate candidate for consideration of right total knee replacement. An extensive discussion was conducted of the natural history of the disease and the variety of surgical and non-surgical treatment options available to the patient. A risk/benefit analysis was discussed with the patient reviewing the advantages and disadvantages of surgical intervention at this time. A full explanation was given of the nature and the purpose of the procedure and anesthesia, its benefits, possible alternative methods of diagnosis of treatment, the risks involved, the possibility of complications, the foreseeable consequences of the procedure and the possible results of the non-treatment. No guarantee or assurance was made as to the results that may be obtained. Specifically, the risks were identified to include, but are not limited, to the following: Infection, phlebitis, pulmonary embolism, , paralysis, dislocation, pain, stiffness, instability, limp, weakness, breakage, leg-length inequality, uncontrolled bleeding, nerve injury, blood vessel injury, pressure sores, anesthetic risks, delayed healing of wound and bone, and wear and loosening. Additional risks of robotic knee replacement were discussed (if used) including but not limited to pin site infection, draining, longer incision, longer OR time, and fracture near the pin sites. Further discussion was undertaken with the patient about the details of surgical preparation, treatment and postoperative rehabilitation including medical clearance, autotransfusion, the hospital course and the postoperative rehabilitation involved. As a part of routine preoperative counseling, if the patient is a smoker, the patient recognizes the increased risk of complications in patients who utilize tobacco products. The patient has also been counseled regarding the elevated risk of surgical complications in patients with an elevated BMI. The patient demonstrates understanding of the increased risk in such patients. The patient was encouraged to participate in physical activity and diet modification under the direction of their primary care physician. We will plan on proceeding with right total knee arthroplasty using the [employer] total knee replacement system. However, it is possible during the preoperative planning process or due to intraoperative findings that a different implant system may be utilized in order to optimize the patient's outcome. We had a discussion regarding implant and bearing options. We had a detailed discussion of the advantages and limitations of the specific implant designs, materials and bearing surfaces. All questions were answered to the patient's satisfaction, and the patient was asked to call the office with any further concerns. All in all, I feel that this patient is a good candidate for surgical reconstruction.? An in-depth discussion of the risks and benefits of surgery as noted above were had with patient, including any reasonable alternatives and the risks and benefits of the alternatives. The patient was given time to understand and ask questions, and the surgical consent was signed and dated today. If surgery is >1 month from today, this discussion will be repeated on the day of surgery, prior to anesthesia administration. The patient is also aware that questions can be asked at any time before the surgical date to me or my team. Plan for right total knee replacement, robotic assisted, at [place] [facility]. Not available 09/28/2024 13:20:17 10/11/2024 10/11/2024 64-year-old male presents with chief complaint of left knee pain. History, examination and x-rays are consistent with advanced osteoarthritis with cysb-ws-cscl articulation. After discussion regarding treatment options he wishes to proceed with cortisone injection to the left knee. He will also be prescribed meloxicam to use as an alternative to ibuprofen. We will also continue with the planning process for right sided total knee arthroplasty in November. This patient was seen and evaluated by Doug Basurto MS, PAAixa in indirect conjunction with [facility] Patel Monge MD. He agrees with history, physical examination, tests/diagnostic imaging, and treatment plan. This document was generated using voice recognition software. As a result, there may be unintended spelling, grammatical and/or textual errors. Not available 10/11/2024 10:46:35 12/20/2024 12/20/2024 Patient opted fo r a video visit because it is clinically appropriate for the information reviewed and meets the patients' technological ability and equipment access. I confirmed patient identity verbally and they were advised about video/telephone delivery of care, HIPAA privacy and risk of communicating over appropriate video capable devices. The use of audio-only or video telecommunication technology is consistent with state and federal requirements. Patient stated understanding of the limitation of the treatment provided via audio/video and consents to this visit today. Patient stated they are comfortable that they are in a quiet and private location to speak freely about their health. The patient understands that today's visit will be submitted to the patient's insurance and may incur a co-pay or deductible. Patient is scheduled for right total knee arthroplasty at [facility]. They have significant joint pain, dysfunction and disability that impact many of their activities of daily living. They have failed to respond to alternate, conservative treatment measures. Physical Exam: Patient is located in their work place. The patient's calculated BMI is 34. Patient is awake, alert and oriented to person, place and time. They are interacting appropriately with this examiner. They are asking and answering questions appropriately. Speech is clear and intelligible. The patient's communication skills do not indicate any significant neurologic dysfunction. After careful review of patient history and their individual risk factors for infection, they will not require additional antibiotic coverage after surgery. It has been determined that ASA is the appropriate medication for the prevention of DVT/PE. The patient wishes to be admitted to the hospital overnight. All questions were answered to the patients' satisfaction. After discussion of risks, benefits and alternatives, the patient has now made their final decision to proceed with surgery. Joint arthroplasty has been determined to be medically indicated and necessary to address the patients' pain and disability. All medical clearance documents, imaging studies, history, PE, office notes and relevant tests have been reviewed. More than twenty total minutes have been spent on this patient encounter plus a review of relevant imaging tests, medical history, medication lists, and medical clearance documents. This patient was seen and evaluated by Doug Basurto MS, DANA in indirect conjunction with documenting/supervi sing provider Patel Monge MD. He agrees with history, physical examination, tests/diagnostic imaging, and treatment plan. Not available 12/20/2024 15:41:59 01/03/2025 01/03/2025 HPI : Patient is doing well at 1 week follow up status post right total knee arthroplasty. They deny fever, chest pain and shortness of breath. They are compliant with anticoagulation protocol. He reports continued difficulty getting a full night sleep. He has jim but is no longer using the oxycodone. He has been using Tylenol PM in the evenings which helps him to get a couple of hours sleep. He has started outpatient physical therapy and has plans to continue. He is compliant with aspirin for DVT prophylaxis and has not encountered any specific problems since the time of his surgery. Physical Exam : Patient is well nourished, well- developed, in no acute distress, with appropriate mood and affect. The patient demonstrates good knee strength. The incision is clean and dry with no sign of infection. Negative calf tenderness and Jonny's sign. Range of motion is from 0-110 degrees. Assessment/Plan : The patient is doing well status post knee arthroplasty. Continue 28 day course of anticoagulation therapy. The patient will do physical therapy and return for follow-up in 1 month for re-evaluation; sooner with any problems. This patient was seen and evaluated by Doug Basurto MS, DANA in indirect conjunction with documenting/supervi sing provider Patel Monge MD. He agrees with history, physical examination, tests/diagnostic imaging, and treatment plan. Not available 01/03/2025 10:48:14 02/08/2025 02/08/2025 HPI : Patient is here for a 6 week follow-up from a Right total knee replacement. He is recovering slowly but appropriately. He is increasing his motion. He states he gets past the 120 degrees of motion with physical therapy. His main issue is nighttime pain. He feels stiffness and some pain laterally. Physical Exam : Patient is well nourished, well- developed, in no acute distress, with appropriate mood and affect. The patient is AAOx3. The patient demonstrates good knee motion and strength. The incision is well healed. Assessment/Plan : The patient is functioning well 6 weeks from total knee arthroplasty. We discussed ways to continue to work on pain control, and medications for at night. Continue physical therapy as needed. Return for follow-up in 2 months with x-rays at that time. Not available 02/08/2025 10:03:15 Plan of Treatment Reminders Order Date Submit Date Provider Last Modified By Organization Details Last Modified Time Details Appointments FOLLOW UP 2024 09:00A M Patel Monge MD Not available Not available Not available Lab None recorded . Referral None recorded . Procedures None recorded . Surgeries total knee arthropl asty (SURG) 2023 025 [facility] [place] [place] [address] [place], [address], 12/25/2024 08:42:09 Imaging XR, knee, 1 or 2 view 2023 024 [email or web address], [address], [place], [address], 10/11/2024 10:52:30 XR, knee, 4 or more view 2023 024 [facility], [address], [place], [address], 09/28/2024 14:54:54 Medication Orders Marcaine (PF) 0.5 % (5 mg/mL) injectio n solution [id number], [address] [place], [address], 10/11/2024 11:08:45 lidocain e (PF) 100 mg/5 mL (2 %) injectio n syringe [address]/[id number], [address] [place], [address], 10/11/2024 11:08:44 triamcin olone acetonid e 40 mg/mL suspensi on for injectio n 2023 024 [id number], [address] [place], [address], 10/11/2024 11:08:48 meloxica m 15 mg tablet 2023 024 [id number], [address] [place], [address], 10/11/2024 10:45:18 Patient TargetsNo targets recorded. Patient Instructions Encounter Date Encounter Id Patient Instructions Last Modified By Organization Details Last Modified Time 09/28/2024 [id number] AP, lateral, Bolden, and patellar view radiographs of the right knee taken today demonstrate right knee degenerative joint disease with joint space narrowing, osteophyte formation, and subchondral sclerosis. There is dpzv-zz-zcjm articulation in the lateral compartment. Not available 09/28/2024 13:19:12 10/11/2024 [id number] A single lateral view of the left knee is obtained during today's office encounter to complete a full x-ray study of the left knee. It shows advanced osteoarthritis with qttj-ga-oqdh articulation with subchondral sclerosis and marginal osteophytosis. The predominance of disease at the medial compartment but also a moderate degree of degenerative changes at the patellofemoral joint. Not available 10/11/2024 10:50:25 01/03/2025 [id number] physical therapy * - Evaluate and treat as indicated to reduce pain and to improve strength, mobility, stability, range of motion, and function. Please teach a home exercise plan and incorporate PT into patient's exercise routine. 2-3 sessions weekly for 6-8 weeks. [email or web address] Not available 01/10/2025 08:33:29 Reason for Referral None Reported. Results Created Date Observation Date Name Description Value Unit Range Abnormal Flag Note LastModifiedBy Organization Detail LastModifiedTime 11/26/2011/23/2024 CT, knee, w/o contr ast No observ ation record ed. [email or web address] [facility] ([facility] [address], [place], [address], 11/29/2024 08:21:27 11/26/20 24 11/23/2024 CT, knee, w/o contr ast No observ ation record ed. [facility] [place] [facility] ([facility]) [address], [place], [address], 11/29/2024 08:54:30 12/24/19 25 12/24/2024 XR, knee, 1 or 2 view No observ ation record ed. [email or web address] [address], [address], 12/24/2024 16:45:55 Result Notes None recorded. Problems Name Problem SNOMED Code Status Onset Date Resolution Date Notes Provider Name and Address Organization Details Recorded Time Osteoarthri tis of right knee joint 4347504866141 00 Active 2022 DOUG DORMAN PA-C [address], [place], [address], [place] [facility], P 3 12:26:57 Osteoarthri tis of left knee joint 3339542179994 09 Active 2022 DOUG DORMAN PA-C [address], [place], [address], [place] [facility], P 3 12:27:03 Postoperati ve pain 480792234 Active 2022 DOUG DORMAN PA-C [address], [place], [address], [place] [facility], P 3 15:05:32 Arthritis of knee 519097118 Active 2023 Patel Monge MD [address], [place], [address], [place] [facility], P 4 13:18:32 History of total knee arthroplast y 3209216774478 Active 2024 DOUG BASURTO PA-C [address], [place], [address], [place] [facility], P 5 10:46:50 Arthritis of right hip 2655423619500 101 Active 2022 Jefferson Franklin MD [address], [place], [address], [place] [facility], P 12:50:31 Problem Notes None recorded. Procedures Surgical History Date Name Laterality Status Provider Name and Address Organization Details Recorded Time 12/24/19 25 TOTAL KNEE ARTHROPLASTY (SURG) completed Cinthia Scherer [facility] - [facility], P 12/25/2024 08:42:09 10/11/20 24 MJG Knee injection w/US completed DOUG BASURTO PA-C [address] [facility], [place], [address], [place] [facility], P 10/11/2024 10:45:51 06/16/20 23 Knee Joint/Bursa Asp & Inj completed DOUG DORAMN PA-C [address], [place], [address], [place] [facility], P 06/16/2023 12:20:06 02/04/20 22 Shoulder Surgery completed Gina Santamaria [facility] - [facility], P 09/28/2024 12:53:38 Shoulder Surgery completed Lory Carmona [facility] - [facility], P 02/16/2023 10:10:33 Imaging Results Imaging Date Name Status LastModified by Organiz ation Details LastModified Time 11/23/2024 CT, knee, w/o contrast completed laci [facility] [place], [address], 11/29/2024 08:21:27 11/23/2024 CT, knee, w/o contrast completed miko [facility] [place], [address], 11/29/2024 08:54:30 12/24/2024 XR, knee, 1 or 2 view completed maria de jesus[address] [place] [address], [address], 12/24/2024 16:45:55 Procedure Notes None recorded. Medical Equipment None Reported. Allergies No known drug allergies Medications Name Sig Start Date Stop Date Status Note LastModified by Organization Details LastModified Time Prescripti on - New active Signed Not Available Not Available Not Available amoxicilli n 500 mg capsule TAKE 4 CAPSULES 1 HOUR PRIOR TO DENTAL PROCEDUR E 09/28 completed Not Available Not Available Not Available azithromyc in 250 mg tablet active Not Available Not Available Not Available ofloxacin 0.3 % eye drops INSTILL 1 DROP INTO LEFT EYE 3X/DAY FOR 7 DAYS, THEN STOP 10/11 completed Not Available Not Available Not Available senna 8.6 mg tablet TAKE 2 TABLETS BY MOUTH EVERY DAY AT BEDTIME active Not Available Not Available No t Available meloxicam 15 mg tablet TAKE 1 TABLET EVERY DAY BY ORAL ROUTE NEEDED. active Not Available Not Available No t Available metronidaz ole 500 mg tablet TAKE 1 TABLET BY MOUTH THREE TIMES A DAY FOR 7 DAYS 10/11 completed Not Available Not Available Not Available omeprazole 40 mg capsule,de layed release TAKE 1 CAPSULE BY MOUTH EVERY DAY active Not Available Not Available No t Available aspirin 81 mg tablet,del ayed release 09/28 completed Not Available Not Available Not Available tramadol 50 mg tablet TAKE 1 TABLET BY MOUTH EVERY 6 HOURS NEEDED active Not Available Not Available No t Available acetaminop hen 500 mg tablet TAKE 2 TABS EVERY 8 HOURS NEEDED FOR PAIN 09/28 completed Not Available Not Available Not Available amoxicilli n 500 mg tablet Take 4 tablets 1 hour prior to dental procedur e 09/28 completed Not Available Not Available Not Available amoxicilli n 875 mg tablet TAKE 1 TABLET BY MOUTH TWICE A DAY UNTIL FINISHED 09/28 completed Not Available Not Available Not Available methocarba mol 750 mg tablet active Not Available Not Available Not Available trazodone 100 mg tablet TAKE 1 TABLET BY MOUTH EVERY DAY AT BEDTIME FOR 14 DAYS active Not Available Not Available No t Available triamcinol one acetonide 40 mg/mL suspension for injection Take 1 mL by injectio n route. 10/11 completed Not Available Not Available Not Available pantoprazo le 40 mg tablet,del ayed release active Not Available Not Available Not Available levofloxac in 500 mg tablet TAKE 1 TABLET BY MOUTH EVERY DAY FOR 7 DAYS 10/11 completed Not Available Not Available Not Available ondansetro n 4 mg disintegra ting tablet active Not Available Not Available Not Available oxycodone 5 mg tablet active Not Available Not Available Not Available Marcaine (PF) 0.5 % (5 mg/mL) injection solution Take 4 mL by injectio n route. 10/11 completed Not Available Not Available Not Available lidocaine (PF) 10 mg/mL (1 %) injection solution Take 2 mL by injectio n route. 10/11 completed Not Available Not Available Not Available tranexamic acid 650 mg tablet active Not Available Not Available No t Available lidocaine (PF) 100 mg/5 mL (2 %) injection syringe Take 4 mL by injectio n route. 10/11 completed Not Available Not Available Not Available Stimulant Laxative Plus 8.6 mg-50 mg tablet 09/28 completed Not Available Not Available Not Available Vitals Date Recorded Body height Body mass index (BMI) Body weight Provider Name and Address Organization Details Last Updated DateTime 09/28/2024 177.8 cm 33.7 kg/m2 001053.[address] - [facility] 09/28/2024 12:53:48 Date Recorded Body height Provider Name an d Address Organization Details Last Updated DateTime 10/11/2024 [address] [facility] 10/11/2024 10:35:55 Social History None recorded. Functional Status None recorded. Mental Status None recorded. Family History Relationship Description Onset Age of this Age Resolved Age Notes LastModified by Organization Details LastModified Time Father No current problems or disability [email or web address] Not available 02/16 10:10:03 Mother No current problems or disability [email or web address] Not available 02/16 10:10:03 Medical History Condition Response Reflux/GERD Y Past Encounters Encounter ID Performer Location Encounter Start Date Encounter Closed Date Diagnosis/Indication Diagnosis SNOMED-CT Code Diagnosis ICD10 Code Diagnosis Note [id number] MD CRAIG Haas [address] [place] [address] 02/16/2023 09:50:08 02/16/2023 10:31:38 Arthritis of right hip 0725197500 763842 M13.851 [id number] MD CRAIG Bran [address] [facility] [address] [place] [address] 03/16/2023 13:20:18 03/16/2023 14:14:52 History of total replacement of right hip joint 8147761604 14226 Z96.641 Postoperative pain 44828 9007 G89.18 [id number] MD CRAIG Bran [address] [facility] [address] [place] [address] 04/12/2023 14:09:27 04/12/2023 14:36:04 Aftercare 861438866 Z47.1 [id number] MD CRAIG Branpura [address] [place] [address] 06/16/2023 09:39:30 06/16/2023 11:19:59 Follow-up visit [id number] Z09 Low back pain 232475682 M54.50 Osteoarthr itis of right knee joint 7173287144 16534 M17.11 Osteoarthr itis of left knee joint 9510562113 98088 M17.12 History of total replacement of right hip joint 7478802755 58961 Z96.641 [id number] Poly Gargfrantz SRINIVASAN [facility] [address] [facility] [address] [place] [address] 09/28/2024 12:48:48 09/28/2024 13:30:01 Pain of right knee region 3135229978 81353 M25.561 Osteoarthr itis of right knee joint 3087528256 02553 M17.11 Arthritis of knee 965837 002 M13.869 [id number] MD CRAIG Bran [address] [place] [address] 10/11/2024 10:26:38 10/11/2024 10:52:30 Osteoarthritis of left knee joint 5112993654 00293 M17.12 [id number] MD CRAIG Brnapura alarcon [address] [facility] [address] [place] [address] 12/20/2024 10:38:11 12/21/2024 07:33:02 Osteoarthritis of right knee joint [id number] M17.11 [id number] MD CRAIG Bran [facility] [address] [facility] [address] [facility] [facility] [address] [place] [id number] 01/03/2025 10:25:16 01/03/2025 10:47:10 History of total knee arthroplasty [id number] 105 Z96.651 [id number] MD CRA[facility] [address] [facility] [address] [facility] [place] [place] [phone] 02/08/2025 09:13:55 02/08/2025 10:05:36 Surgical follow-up [id number] Z47.1 Z96.651 Health Concerns Section Related Observation LastModified by Organization Detai ls LastModified Time None Recorded Concern Status LastModified by Organization Details LastModified Time None Recorded Advance Directives Directive None Recorded Payers Encounter Date Sequence Insurance Name Policy Number Policy [place] Covered Member ID [place] Member ID Guarantor Name 09/28/2024 1 [place] [employer] Ralf Sands [id number] Ralf Sands 09/28/2024 2 [place] [id number] Ralf Sands [id number] Ralf Sands 10/11/2024 1 [place] [employer] [employer] Ralf Sands [id number] Ralf Sands 10/11/2024 2 [place] [id number] Ralf Sands [id number] Ralf Sands 12/20/2024 1 [place] [employer] Ralf Sands [id number] Ralf Sands 12/20/2024 2 [place] [id number] Ralf Sands [id number] Ralf Sands 01/03/2025 1 [place] [employer] Ralf Sands [id number] Ralf Sands 01/03/2025 2 [place] [id number] Ralf Sands [id number] Ralf Sands 02/08/2025 1 [place] [employer] Ralf Sands [id number] 4 Ralf Sands 02/08/2025 2 [facility]: [facility] [id number] Ralf Sands [id number] Ralf Sands Notes Date Note Type Note Provider Name and Address Organization Details Recorded Time 10/11/2024 text/html 64-year-old male presents with chief complaint of left knee pain. He reports that he has had discomfort for many months but states that it has recently culminated with sharp and stabbing pains. He had a cortisone injection to the left knee in May of last year and states that it gave him good relief lasting for several months. In January of this year Dr. Nevarez did gel injections which were ineffective at giving him any relief of his pain. He reports that he has been taking ibuprofen like candy. He states that it helps but the effects are short-lived. He engages me in conversation about the role of cortisone injection for the left knee. Notably, he is scheduled for right sided total knee arthroplasty with Dr. Monge in November. DOUG BASURTO PA-C [address] [place] [address], [phone], [place] - [facility], P 10/11/2024 10:51:11
[2025-03-27 06:27] LABS: MANUAL DIFF FLAG NO
[2025-03-27 07:20] LABS: Basophils Percent Auto 0.6 % (0-2); Eosinophils Absolute Auto 0.2 X10*3/uL (0.0-0.4); Eosinophils Percent Auto 3.2 % (0-4); Hematocrit 43.7 % (42.0-52.0); Hemoglobin 14.7 g/dl (14.0-18.0); Imm Gran Abs Auto 0.04 X10*3/uL (0.00-0.03); Imm Gran Pct Auto 0.6 % (0.0-0.4); Lymphocytes Absolute Auto 1.9 X10*3/uL (1.2-4.9); Lymphocytes Percent Auto 30.6 % (20-40); Mean Corpuscular HGB Conc 33.6 g/dl (31.0-36.0); Mean Corpuscular Hemoglobin 30.9 pg (27.0-33.0); Mean Corpuscular Volume 91.8 fL (80.0-98.0); Mean Platelet Volume 9.2 fL (9.4-12.4); Monocytes Absolute Auto 0.7 X10*3/uL (0.1-1.2); Monocytes Percent Auto 11.3 % (2-11); Neutrophils Absolute Auto 3.4 x10*3/uL (2.0-8.3); Neutrophils Percent Auto 53.7 % (45-73); Platelet Count 265 X10*3/uL (160-400); Red Blood Count 4.76 X10*6/uL (4.60-5.80); Red Cell Distribution Width 13.6 % (11.0-16.0); White Blood Count 6.3 X10*3/uL (4.8-10.8)
[2025-03-27 07:53] LABS: Alanine Aminotransferase 32 U/L (0-40); Albumin Level 4.2 g/dL (3.5-5.0); Alkaline Phosphatase 87 U/L (39-117); Anion Gap 13 (12-20); Aspartate Amino Transferase 30 U/L (5-37); Bilirubin Total 0.6 mg/dL (0.0-1.0); Blood Urea Nitrogen 18 mg/dL (9-16); Calcium 9.8 mg/dL (8.4-10.2); Carbon Dioxide 28 mmol/L (22-29); Chloride 107 mmol/L (96-108); Cholesterol 225 mg/dL (<200); Estimated Glomerular Filt Rate > 60; Glucose Fasting 91 mg/dL (60-99); HDL Cholesterol 48 mg/dL (>40); LDL Cholesterol Calculated 155 mg/dL (<100); Potassium 4.7 mmol/L (3.3-5.1); Sodium 143 mmol/L (135-145); Total Protein 7.3 g/dL (6.5-8.0); Triglycerides 110 mg/dL (<150)
[2025-03-27 08:08] LABS: Prostate Specific Antigen 0.62 ng/mL (<0.05-4.0)
== END 2025-03-27 06:15 | disposition home or self-care (01) ==
LOC: HO.LAB 06:14
PROVIDERS: PCP Internal Medicine Medical Oncology; Visit Provider Internal Medicine Medical Oncology
DX: Z00.00 Encounter for general adult medical examination without abnormal findings (principal); N40.0 Benign prostatic hyperplasia without lower urinary tract symptoms; E66.01 Morbid (severe) obesity due to excess calories; Z12.5 Encounter for screening for malignant neoplasm of prostate
CPT/HCPCS: 36415; 80053; 80061; 84153; 85025

== ENCOUNTER 2025-04-19 14:56 | Outpatient (REF) | payer MEDICARE, SELFPAY ==
--- NOTE | ~2025-04-19 | XR_ITS ---
EXAMINATION: XR CERVICAL SPINE CLINICAL INFORMATION: NECK PAIN COMPARISON: None available. TECHNIQUE: 3 views of the cervical spine were obtained. FINDINGS: Craniocervical junction is intact. Marginal osteophyte formation and endplate sclerosis and decreased intervertebral disc height C5-6 and C6-7 levels. Probable grade 1 retrolisthesis C3-4. No acute cortical disruption. No lytic or blastic lesion. Upper airway is patent. XR/XR cervical spine 3V IMPRESSION: Multilevel cervical spondylosis more pronounced at C5-6 and C6-7 levels. Probable grade 1 retrolisthesis C3-4. Electronically signed by: Carlos A Davis MD 04/19/2025 03:23 PM EDT
--- OUTSIDE RECORDS SUMMARY | 2025-04-19 14:59 | XMS_ITS | Patient Health Record ---
Author Organization [facility] Address [address] [place] [address] Care Team Providers Care Bug Trimmer Name Role Phone Elpidio He MD Primary Care Provider Unavailab Chin Youssef Unavailable [phone] Reason For Referral No Information Medications Medication SIG (Take, Route, Fr equency, Duration) Notes Start Date End Date Status Omeprazole 40 MG TAKE 1 CAPSULE BY [facility] EVERY DAY for 90 Active Advil 200 MG 1 tablet with food o r milk as needed Orally prn Active PriLOSEC OTC 20 MG 1 tablet 30 minutes before morning meal Orally Once a day A ctive Immunizations Vaccine Route Administration Date Status Comme nts Influenza Unknown 08/28/2019 Administered Influenza Unknown 07/29/2020 Administered Social History Tobacco Use: Social History Observation Description Date Details (start date - stop date) Never Smoker NA - NA Tobacco Use/Smoking Question Answer Notes Patient is a nonsmoker Alcohol Screen Question Answer Notes Did you have a drink contain ing alcohol in the past year? Yes How often did you have a dri nk containing alcohol in the past year? 2 to 4 times a month (2 points) How many drinks did you have on a typical day when you were drinking in the past year? 1 or 2 drinks (0 point) How often did you have 6 or more drinks on one occasion in the past year? Never (0 point) Points 2 Interpretation Negative Section Notes: Nonsmoker; no sig alcohol Nonsmoker; no sig alcohol Problems Problem Type SNOMED Code ICD Code Onset Dates Problem Status W/U Status Risk Notes Problem [id number] Epigastric abdominal pain (R10.13) Active confirmed Problem [id number] Encounter for screening for malignant neoplasm of colon (Z12.11) Active confirmed Problem 057196780 Gastroesophageal reflux disease without esophagitis (K21.9) Active confirmed Problem 131222926910952 Preprocedural examination (Z01.818) Active confirmed Problem 92895320 Hiatal hernia (K44.9) Active confirmed Problem 88721056383916245 Abnormal ultra sound of liver (R93.2) Active confirmed Problem 101319298 Gastroesophageal reflux disease, unspecified whether esophagitis present (K21.9) Active confirmed Problem 621666596 Liver mass, righ t lobe (R16.0) Active confirmed Plan Of Treatment Pending Test Test Name Order Date BUN 05/12/2021 CREATININE 05/12/2021 LIVER PROFILE 05/12/2021 CEA 05/12/2021 ALPHA-FETOPROTEIN,TUMOR MARKER MRI ABD W&WO CONTRAST 05/12/2021 US ABD 03/27/2021 Future Test Test Name Order Date COLONOSCOPY 02/12/2020 UPPER GI ENDOSCOPY 03/27/2021 Insurance Providers Payer Name Payer Address Payer Phone Subscriber Number Group Number Insured Name Patient Relationship to Insured Coverage Start Date Coverage End Date [facility] [address] [place], [place] [phone] [id number] JAMES BURTON Self - patient is the insured Medical (General) History Medical History History ICD Code Denies [place],DM,CVA,Lung disease,renal dise ase Screening colonoscopy in Jan was negative except for hyperplastic polyps GERD-EGD in January of 2009 re vealed a moderate-sized hiatal hernia and minimal changes of reflux. There was no significant esophagitis nor Villela's esophagus. Neg. screening colonoscopy in 04/2020 Surgical History Surgery Date(Month/Year) Left knee arthroscopy Right knee arthroscopy
== END 2025-04-19 14:57 | disposition home or self-care (01) ==
LOC: HO.XRAY 14:56
PROVIDERS: PCP Internal Medicine Medical Oncology; Visit Provider Internal Medicine Medical Oncology
DX: M19.90 Unspecified osteoarthritis, unspecified site (principal); M54.2 Cervicalgia
CPT/HCPCS: 72040

== ENCOUNTER → 2025-04-19 15:13 | Outpatient (BNV) | payer MEDICARE, SELFPAY | PROVIDERS: PCP Internal Medicine Medical Oncology; Visit Provider Radiology Diagnostic Radiology | DX: M47.812 Spondylosis without myelopathy or radiculopathy, cervical region (principal) | CPT/HCPCS: 72040 ==